=== PATIENT | female | born 1995 | race Caucasian/White ===

== ENCOUNTER 2016-05-13 09:50 | Emergency (ER) | payer OTHER ==
[2016-05-13] MEDS ORDERED: Aspirin Low Dose CHEW TAB* 81 MG PO ONE (10:18)
[2016-05-13 10:48] LABS: Hematocrit 43 % (35-47); Hemoglobin 14.1 g/dl (12.0-16.0); Mean Corpuscular HGB Conc 33 g/dl (31-36); Mean Corpuscular Hemoglobin 31 pg (27-31); Mean Corpuscular Volume 93 fL (80-97); Mean Platelet Volume 8 um3 (7.4-10.4); Red Blood Count 4.57 10^6/ul (4.0-5.4); Red Cell Distribution Width 13 % (10.5-15); White Blood Count 14.7 10^3/ul (3.5-10.8)
--- NOTE | 2016-05-13 10:52 | RAD ---
Indication: Chest pain. Single frontal view of the chest performed at 1020 hours was reviewed. No prior studies available for comparison. No mediastinal shift is noted. Heart is of normal size and configuration. Lung price appear clear. IMPRESSION: NO ACTIVE CARDIOPULMONARY DISEASE IS NOTED.
[2016-05-13 10:57] VITALS: BP 151/92
[2016-05-13 11:05] LABS: Albumin 4.1 g/dL (3.2-5.2); BUN/Creatinine Ratio 18.2 (8-20); Calcium 9.5 mg/dL (8.6-10.3); EGFR African American 121.7 (>60); EGFR Non-African American 94.6 (>60); Globulin 2.8 g/dL (2-4); Potassium 3.5 mmol/L (3.5-5.0); Total Bilirubin 0.8 mg/dL (0.2-1.0); Total Protein 6.9 g/dL (6.4-8.9)
--- NOTE | 2016-05-13 11:14 | ED ---
HPI Chest Pain - HPI Summary HPI Summary: Patient presents with 2 months of feeling like she can't catch her breath. 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 She does not have symptoms during exercise but can feel them after or at night when she is in bed. She can also have a sharp pain on her left rib and sternum that does not necessarily coincide with her other feelings. She denies [place], sweating, nausea, vomiting, back or abdominal pain. She had a fever in the fall and things the symptoms may have begun back then. She sought evaluation at [facility] and was given an inhaler, and steroids without relief. - History of Current Complaint Hx Obtained From: Patient Onset/Duration: Started Weeks Ago, Atraumatic, Still Present Timing: Intermittent Initial Severity: Mild Current Severity: Mild Pain Intensity: 0 Chest Pain Location: Mid Sternal, Right Lateral Chest Pain Radiates: No Character: Fluttering, Sharp/Stabbing Aggravating Factor(s): Nothing Alleviating Factor(s): Nothing Associated Signs and Symptoms: Positive: Chest Pain, Weakness, Shortness of Breath <Tano Nina - Last Filed: 05/13/16 11:31> <Gracie Dior - Last Filed: 05/13/16 16:31> - History of Current Complaint Chief Complaint: EDChestPainROMI Time Seen by Provider: 05/13/16 09:57 - Allergy/Home Medications Allergies/Adverse Reactions: Allergies Allergy/AdvReac Type Severity Reaction Status Date / Time No Known Allergies Allergy Verified 11/27/14 13:04 PMH/Surg Hx/FS Hx/Imm Hx Previously Healthy: Yes Endocrine/Hematology History: Denies: Hx Diabetes Cardiovascular History: Denies: Hx Hypertension, Hx Pacemaker/ICD Respiratory History: Denies: Hx Asthma Sensory History: Denies: Hx Hearing Aid Psychiatric History: Denies: Hx Panic Disorder - Surgical History Surgery Procedure, Year, and Place: HERNIA REPAIR Infectious Disease History: No Infectious Disease History: Denies: Traveled Outside the [place] in Last 30 Days - Social History Occupation: Student Lives: Alone Alcohol Use: None Substance Use Type: Reports: None Smoking Status (MU): Never Smoked Tobacco <Tano Nina - Last Filed: 05/13/16 11:31> Review of Systems Negative: Fever, Chills Positive: Chest Pain. Negative: Palpitations Positive: Shortness Of Breath. Negative: Cough Negative: Abdominal Pain, Vomiting, Diarrhea, Nausea Negative: Myalgia Positive: Weakness. Negative: Paresthesia, Numbness Positive: Anxious All Other Systems Reviewed And Are Negative: Yes <Tano Nina - Last Filed: 05/13/16 11:31> Physical Exam Triage Information Reviewed: Yes Vital Signs On Initial Exam: Initial Vitals Temp Pulse Resp BP Pulse Ox 99.3 F 63 16 151/92 99 05/13/16 09:55 05/13/16 09:55 05/13/16 09:55 05/13/16 09:55 05/13/16 09:55 Vital Signs Reviewed: Yes Appearance: Positive: Well-Appearing, No Pain Distress, Well-Nourished Skin: Positive: Warm, Skin Color Reflects Adequate Perfusion, Dry, Soft Head/Face: Positive: Normal Head/Face Inspection Eyes: Positive: EOMI, MAYLIN, Conjunctiva Clear ENT: Positive: Hearing grossly normal Neck: Positive: Supple, Nontender, No Lymphadenopathy Respiratory/Lung Sounds: Positive: Clear to Auscultation, Breath Sounds Present Cardiovascular: Positive: RRR Abdomen Description: Positive: Nontender, Soft. Negative: CVA Tenderness (R), CVA Tenderness (L), Distended, Guarding Bowel Sounds: Positive: Present Musculoskeletal: Negative: Edema Left, Edema Right Neurological: Positive: Sensory/Motor Intact, Alert, Oriented to Person Place, Time, NV Bundle Intact Distally, Normal Gait Psychiatric: Positive: Affect/Mood Appropriate AVPU Assessment: Alert <Tano Nina - Last Filed: 05/13/16 11:31> Vital Signs On Initial Exam: Initial Vitals Temp Pulse Resp BP Pulse Ox 99.3 F 63 16 151/92 99 05/13/16 09:55 05/13/16 09:55 05/13/16 09:55 05/13/16 09:55 05/13/16 09:55 <Gracie Dior - Last Filed: 05/13/16 16:31> Diagnostics - Vital Signs Vital Signs Temp Pulse Resp BP Pulse Ox 05/13/16 09:55 99.3 F 63 16 151/92 99 - Laboratory Lab Results: Lab Results 05/13/16 05/13/16 05/13/16 Range/Units 10:37 10:37 10:37 WBC 14.7 H (3.5-10.8) 10^3/ul RBC 4.57 (4.0-5.4) 10^6/ul Hgb 14.1 (12.0-16.0) g/dl Hct 43 (35-47) % MCV 93 (80-97) fL MCH 31 (27-31) pg MCHC 33 (31-36) g/dl RDW 13 (10.5-15) % Plt Count 255 (150-450) 10^3/ul MPV 8 (7.4-10.4) um3 Neut % (Auto) 78.4 (38-83) % Lymph % (Auto) 14.4 L (25-47) % [place] % (Auto) 6.5 (1-9) % Eos % (Auto) 0.4 (0-6) % Baso % (Auto) 0.3 (0-2) % Absolute Neuts (auto) 11.5 H (1.5-7.7) 10^3/ul Absolute Lymphs (auto) 2.1 (1.0-4.8) 10^3/ul Absolute Monos (auto) 1.0 H (0-0.8) 10^3/ul Absolute Eos (auto) 0.1 (0-0.6) 10^3/ul Absolute Basos (auto) 0 (0-0.2) 10^3/ul Absolute Nucleated RBC 0.01 10^3/ul Nucleated RBC % 0.1 Sodium 138 (133-145) mmol/L Potassium 3.5 (3.5-5.0) mmol/L Chloride 106 (101-111) mmol/L Carbon Dioxide 28 (22-32) mmol/L Anion Gap 4 (2-11) mmol/L BUN 14 (6-24) mg/dL Creatinine 0.77 (0.51-0.95) mg/dL Est GFR ( Amer) 121.7 (>60) Est GFR (Non-Af Amer) 94.6 (>60) BUN/Creatinine Ratio 18.2 (8-20) Glucose 91 (70-100) mg/dL Lactic Acid 1.6 (0.5-2.0) mmol/L Calcium 9.5 (8.6-10.3) mg/dL Magnesium 2.0 (1.9-2.7) mg/dL Total Bilirubin 0.80 (0.2-1.0) mg/dL AST 16 (13-39) U/L ALT 12 (7-52) U/L Alkaline Phosphatase 43 (34-104) U/L Troponin I 0.00 (<0.04) ng/mL Total Protein 6.9 (6.4-8.9) g/dL Albumin 4.1 (3.2-5.2) g/dL Globulin 2.8 (2-4) g/dL Albumin/Globulin Ratio 1.5 (1-3) TSH Pending Result Diagrams: 05/13/16 10:37 05/13/16 10:37 Lab Statement: Any lab studies that have been ordered have been reviewed, and results considered in the medical decision making process. - Radiology No standard instances Xray Interpretation: No Acute Changes Radiology Interpretation Completed By: Radiologist - EKG No standard instances Cardiac Rate: Bradycardia EKG Rhythm: Sinus Rhythm ST Segment: Normal Ectopy: None <Tano Nina - Last Filed: 05/13/16 11:31> - Vital Signs Vital Signs Temp Pulse Resp BP Pulse Ox 05/13/16 09:55 99.3 F 63 16 151/92 99 - Laboratory Lab Results: Lab Results 05/13/16 05/13/16 05/13/16 Range/Units 10:37 10:37 10:37 WBC 14.7 H (3.5-10.8) 10^3/ul RBC 4.57 (4.0-5.4) 10^6/ul Hgb 14.1 (12.0-16.0) g/dl Hct 43 (35-47) % MCV 93 (80-97) fL MCH 31 (27-31) pg MCHC 33 (31-36) g/dl RDW 13 (10.5-15) % Plt Count 255 (150-450) 10^3/ul MPV 8 (7.4-10.4) um3 Neut % (Auto) 78.4 (38-83) % Lymph % (Auto) 14.4 L (25-47) % [place] % (Auto) 6.5 (1-9) % Eos % (Auto) 0.4 (0-6) % Baso % (Auto) 0.3 (0-2) % Absolute Neuts (auto) 11.5 H (1.5-7.7) 10^3/ul Absolute Lymphs (auto) 2.1 (1.0-4.8) 10^3/ul Absolute Monos (auto) 1.0 H (0-0.8) 10^3/ul Absolute Eos (auto) 0.1 (0-0.6) 10^3/ul Absolute Basos (auto) 0 (0-0.2) 10^3/ul Absolute Nucleated RBC 0.01 10^3/ul Nucleated RBC % 0.1 D-Dimer, Quantitative < 200 (Less Than 230) ng/mL Sodium 138 (133-145) mmol/L Potassium 3.5 (3.5-5.0) mmol/L Chloride 106 (101-111) mmol/L Carbon Dioxide 28 (22-32) mmol/L Anion Gap 4 (2-11) mmol/L BUN 14 (6-24) mg/dL Creatinine 0.77 (0.51-0.95) mg/dL Est GFR ( Amer) 121.7 (>60) Est GFR (Non-Af Amer) 94.6 (>60) BUN/Creatinine Ratio 18.2 (8-20) Glucose 91 (70-100) mg/dL Lactic Acid (0.5-2.0) mmol/L Calcium 9.5 (8.6-10.3) mg/dL Magnesium 2.0 (1.9-2.7) mg/dL Total Bilirubin 0.80 (0.2-1.0) mg/dL AST 16 (13-39) U/L ALT 12 (7-52) U/L Alkaline Phosphatase 43 (34-104) U/L Troponin I 0.00 (<0.04) ng/mL Total Protein 6.9 (6.4-8.9) g/dL Albumin 4.1 (3.2-5.2) g/dL Globulin 2.8 (2-4) g/dL Albumin/Globulin Ratio 1.5 (1-3) TSH 1.43 (0.34-5.60) mcIU/mL Urine Color Urine Appearance Urine pH (5-9) Ur Specific [place] (1.010-1.030) Urine Protein (Negative) Urine Ketones (Negative) Urine Blood (Negative) Urine Nitrate (Negative) Urine Bilirubin (Negative) Urine Urobilinogen (Negative) Ur Leukocyte Esterase (Negative) Urine Glucose (Negative) 05/13/16 05/13/16 Range/Units 10:37 11:20 WBC (3.5-10.8) 10^3/ul RBC (4.0-5.4) 10^6/ul Hgb (12.0-16.0) g/dl Hct (35-47) % MCV (80-97) fL MCH (27-31) pg MCHC (31-36) g/dl RDW (10.5-15) % Plt Count (150-450) 10^3/ul MPV (7.4-10.4) um3 Neut % (Auto) (38-83) % Lymph % (Auto) (25-47) % [place] % (Auto) (1-9) % Eos % (Auto) (0-6) % Baso % (Auto) (0-2) % Absolute Neuts (auto) (1.5-7.7) 10^3/ul Absolute Lymphs (auto) (1.0-4.8) 10^3/ul Absolute Monos (auto) (0-0.8) 10^3/ul Absolute Eos (auto) (0-0.6) 10^3/ul Absolute Basos (auto) (0-0.2) 10^3/ul Absolute Nucleated RBC 10^3/ul Nucleated RBC % D-Dimer, Quantitative (Less Than 230) ng/mL Sodium (133-145) mmol/L Potassium (3.5-5.0) mmol/L Chloride (101-111) mmol/L Carbon Dioxide (22-32) mmol/L Anion Gap (2-11) mmol/L BUN (6-24) mg/dL Creatinine (0.51-0.95) mg/dL Est GFR ( Amer) (>60) Est GFR (Non-Af Amer) (>60) BUN/Creatinine Ratio (8-20) Glucose (70-100) mg/dL Lactic Acid 1.6 (0.5-2.0) mmol/L Calcium (8.6-10.3) mg/dL Magnesium (1.9-2.7) mg/dL Total Bilirubin (0.2-1.0) mg/dL AST (13-39) U/L ALT (7-52) U/L Alkaline Phosphatase (34-104) U/L Troponin I (<0.04) ng/mL Total Protein (6.4-8.9) g/dL Albumin (3.2-5.2) g/dL Globulin (2-4) g/dL Albumin/Globulin Ratio (1-3) TSH (0.34-5.60) mcIU/mL Urine Color Yellow Urine Appearance Turbid Urine pH 8.0 (5-9) Ur Specific [place] 1.015 (1.010-1.030) Urine Protein Negative (Negative) Urine Ketones Negative (Negative) Urine Blood Negative (Negative) Urine Nitrate Negative (Negative) Urine Bilirubin Negative (Negative) Urine Urobilinogen Negative (Negative) Ur Leukocyte Esterase Negative (Negative) Urine Glucose Negative (Negative) Result Diagrams: 05/13/16 10:37 05/13/16 10:37 Lab Statement: Any lab studies that have been ordered have been reviewed, and results considered in the medical decision making process. <Gracie Dior - Last Filed: 05/13/16 16:31> Chest Pain Course/Dx - Chest Pain Differential Diagnosis/HQI/PQRI: Acute OK, Angina, Aortic Aneurysm, CHF, Chest Wall, GI Disease, Pulmonary Embolism <Tano Nina - Last Filed: 05/13/16 11:31> <Gracie Dior - Last Filed: 05/13/16 16:31> - Diagnoses Provider Diagnoses: Shortness of breath, DYSPNEA,ANXIETY Discharge <Tano Nina - Last Filed: 05/13/16 11:31> <Gracie Dior - Last Filed: 05/13/16 16:31> - Discharge Plan Condition: Stable Disposition: HOME Patient Education Materials: Dyspnea (ED), Anxiety (ED) Referrals: [facility] CHLOE Rodriguez [Primary Care Provider] - Additional Instructions: Your tests were negative for any acute cardiac issues today. Your symptoms may be related to anxiety or other issues. Follow-up with [facility] in 2-3 days for re-evaluation. Return to the emergency department if symptoms worsen. Attestations User Type: Provider - I was available for consult. This patient was seen by the [facility]. The patient was not presented to, seen by, or examined by sd - SHILPA <Gracie Dior - Last Filed: 05/13/16 16:31>
[2016-05-13 11:37] LABS: TSH (Thyroid Stimulating Horm) 1.43 mcIU/mL (0.34-5.60)
[2016-05-13 11:39] LABS: Urine Bilirubin Negative (Negative); Urine Glucose Negative (Negative); Urine Nitrite Negative (Negative)
== END 2016-05-13 12:07 | disposition home or self-care (01) ==
LOC: ED 09:50
DX: R06.02 Shortness of breath (principal); R06.00 Dyspnea, unspecified; R53.1 Weakness; F41.9 Anxiety disorder, unspecified; R07.9 Chest pain, unspecified
CPT/HCPCS: 36415; 71010; 80053; 81003; 83605; 83735; 84443; 84484; 85025; 85379; 93005; 99282